=== PATIENT | male | born 1970 | race Caucasian/White ===

== ENCOUNTER 2025-05-26 14:41 | Inpatient (IN) | payer BC ==
[2025-05-26 16:34] LABS: #Basophils 0.05 10x3/uL (0.0-0.2); #Eosinophils 0.14 10x3/uL (0.0-0.5); #Monocytes 0.75 10x3/uL (0.0-1.1); #Neutrophils 8.85 10x3/uL (1.5-8.4); %Basophils 0.5 % (0.0-2.0); %Eosinophils 1.3 % (0.0-6.0); %Lymphocytes 11.2 % (18.0-47.0); %Monocytes 6.8 % (0.0-10.0); %Neutrophils 79.8 % (40.0-75.0); Hematocrit 48.5 % (38.8-50.0); Hemoglobin 17.2 g/dL (13.5-17.5); Mean Corpuscular Hemoglobin 31.6 pg (27.0-33.0); Mean Corpuscular Volume 89.0 fL (81.2-95.1); Platelet Count 287 10x3/uL (150-450); Red Blood Cell (RBC) Count 5.45 10x6/uL (4.32-5.72); White Blood Cell (WBC) Count 11.07 10x3/uL (3.5-10.5)
[2025-05-26 16:53] LABS: ALT (SGPT) 67 U/L (Less than 45); AST (SGOT) 45 U/L (11-34); Albumin 3.8 g/dL (3.1-4.5); Alkaline Phosphatase 75 U/L (40-110); Anion Gap 14 mmol/L (10-20); BUN (Urea Nitrogen) 26 mg/dL (8.4-25.7); Bilirubin, Total 0.8 mg/dL (0.3-1.2); CK (CPK) 165 U/L (30-200); Calc. Creatinine Clearance 0 mL/min (70-130); Calcium 9.2 mg/dL (7.8-10.44); Carbon Dioxide 25 mmol/L (22-29); Chloride 105 mmol/L (98-107); Globulin 3.0 g/dL (2.4-3.5); Glucose 110 mg/dL (70-105); Magnesium 1.9 mg/dL (1.6-2.6); Potassium 3.9 mmol/L (3.5-5.1); Sodium 140 mmol/L (136-145)
[2025-05-26] MEDS ORDERED: Orphenadrine Citrate 60 MG/2 ML VIAL ONE (17:24)
[2025-05-26] MEDS ORDERED: Ketorolac Tromethamine 30 MG (1 mL) VIAL ONE (17:24)
[2025-05-26] MEDS ORDERED: Dexamethasone 4 MG TAB ONE (20:16)
[2025-05-26] MEDS ORDERED: Aspirin Chewable 81 MG TAB ONE (22:47)
[2025-05-26] MEDS ORDERED: Ondansetron PF 4 MG/2 ML Vial IVP PRN (23:49)
[2025-05-27 01:56] VITALS: BMI 35.5
[2025-05-27] MEDS: Acetaminophen 325 MG TAB PO PRN (05:49)
[2025-05-27] MEDS: Cyclobenzaprine 10 MG TAB PO PRN (05:51)
[2025-05-27 06:28] LABS: #Basophils Less than 0.03 10x3/uL (0.0-0.2); #Eosinophils Less than 0.03 10x3/uL (0.0-0.5); #Monocytes 0.15 10x3/uL (0.0-1.1); #Neutrophils 9.32 10x3/uL (1.5-8.4); %Basophils 0.0 % (0.0-2.0); %Eosinophils 0.0 % (0.0-6.0); %Lymphocytes 6.0 % (18.0-47.0); %Monocytes 1.5 % (0.0-10.0); %Neutrophils 92.0 % (40.0-75.0); Hematocrit 46.4 % (38.8-50.0); Hemoglobin 16.1 g/dL (13.5-17.5); Mean Corpuscular Hemoglobin 31.4 pg (27.0-33.0); Mean Corpuscular Volume 90.6 fL (81.2-95.1); Platelet Count 241 10x3/uL (150-450); Red Blood Cell (RBC) Count 5.12 10x6/uL (4.32-5.72); White Blood Cell (WBC) Count 10.13 10x3/uL (3.5-10.5)
[2025-05-27 06:47] LABS: ALT (SGPT) 53 U/L (Less than 45); AST (SGOT) 30 U/L (11-34); Albumin 3.4 g/dL (3.1-4.5); Alkaline Phosphatase 61 U/L (40-110); Anion Gap 13 mmol/L (10-20); BUN (Urea Nitrogen) 31 mg/dL (8.4-25.7); Bilirubin, Total 1.0 mg/dL (0.3-1.2); Calc. Creatinine Clearance 103 mL/min (70-130); Calcium 8.7 mg/dL (7.8-10.44); Carbon Dioxide 22 mmol/L (22-29); Cardiac Risk 3.4 (Less than 4.5); Chloride 108 mmol/L (98-107); Cholesterol 148 mg/dl (< 200 Desired); Globulin 2.8 g/dL (2.4-3.5); Glucose 165 mg/dL (70-105); HDL Cholesterol 44 mg/dL (>60 Neg Risk); LDL Cholesterol, Calculated 92 mg/dL; Potassium 3.8 mmol/L (3.5-5.1); Sodium 139 mmol/L (136-145); Triglycerides 58 mg/dL (Less than 150)
[2025-05-27] MEDS: PNEUMOC 20-VAL CONJ-DIP CRM/PF 0.5 ML SYRINGE IM ONE (23:23)
[2025-05-28 05:34] LABS: Anion Gap 10 mmol/L (10-20); BUN (Urea Nitrogen) 32 mg/dL (8.4-25.7); Calc. Creatinine Clearance 115 mL/min (70-130); Calcium 8.6 mg/dL (7.8-10.44); Carbon Dioxide 25 mmol/L (22-29); Chloride 106 mmol/L (98-107); Glucose 123 mg/dL (70-105); Potassium 4.1 mmol/L (3.5-5.1); Sodium 137 mmol/L (136-145)
[2025-05-28] MEDS: Spironolactone 25 MG TAB PO SCH (08:26)
[2025-05-28 16:37] VITALS: TEMP 98.1
[2025-05-28 19:23] VITALS: BP 107/58
== END 2025-05-28 20:30 | disposition still patient (30) | DRG 537 ==
LOC: CSHERS 14:41 → CSHTELE 23:49 → OBSVTOIN 05-27 13:36
PROVIDERS: ADMIT Internal Medicine; ATTEND Internal Medicine
DX: S76.112A Strain of left quadriceps muscle, fascia and tendon, initial encounter (principal); I63.89 Other cerebral infarction; T79.A11A Traumatic compartment syndrome of right upper extremity, initial encounter; T79.A12A Traumatic compartment syndrome of left upper extremity, initial encounter; S76.111A Strain of right quadriceps muscle, fascia and tendon, initial encounter; I10 Essential (primary) hypertension; Z79.899 Other long term (current) drug therapy; E78.5 Hyperlipidemia, unspecified; X50.1XXA Overexertion from prolonged static or awkward postures, initial encounter
CPT/HCPCS: 36415; 70450; 70551; 70553; 71250; 72125; 74177; 76376; 80048; 80053; 80061; 82550; 83605; 83735; 85025; 94760; 96372; 96374; G0378; J1885; J2360; J8540